=== PATIENT | female | born 1995 | race Two or more races ===

== ENCOUNTER 2018-05-08 16:31 | Emergency (ER) | payer MEDICAID, OTHER ==
[~2018-05-08] VITALS: Ht 160 cm; Wt 56.2 kg
[2018-05-08 16:31] VITALS: BP 120/85
[2018-05-08] MEDS ORDERED: SULF1TAB48 PO (16:43)
--- NOTE | 2018-05-08 17:04 | NUR ---
URINE SAMPLE COLLECTED SENT TO LAB
[2018-05-08 17:12] LABS: APPEARANCE,URINE CLEAR (CLEAR); BILIRUBIN,URINE NEGATIVE (NEGATIVE); BLOOD, URINE NEGATIVE Ery/uL (NEGATIVE); COLOR,URINE YELLOW (YELLOW); KETONES,URINE NEGATIVE (NEGATIVE); LEUKOCYTE ESTERASE ,URINE NEGATIVE (NEGATIVE); NITRITE, URINE NEGATIVE (NEGATIVE); PH,URINE 6.5 (5.0-8.0); PROTEIN,URINE NEGATIVE (NEGATIVE); UGLUCOSE NEGATIVE (NEGATIVE); UROBILINOGEN,URINE 0.2 EU/dL (0.2)
== END 2018-05-08 17:37 | disposition home or self-care (01) ==
LOC: ER 16:40
DX: R53.81 Other malaise (principal); R53.83 Other fatigue; K58.9 Irritable bowel syndrome, unspecified; Z90.49 Acquired absence of other specified parts of digestive tract
CPT/HCPCS: 81000-TC; 84703-TC; A4606; Z7610

== ENCOUNTER 2018-06-02 18:31 | Emergency (ER) | payer OTHER ==
[~2018-06-02] VITALS: Ht 162.6 cm; Wt 56.7 kg
[~2018-06-02 18:31] MED LIST: SULF1TAB48 PO
--- NOTE | 2018-06-02 18:35 | NUR ---
PRESENTS TO ER C/O MIGRAINE, DIZZINESS, AND VAGINAL INFECTION ~ 2 MONTHS. PATIENT IS A/OX 4, BREATHING EVEN AND UNLABORED. NO SOB, NAD, VITALS STABLE. SAFETY AND COMFORT MEASURES IN PLACE. AWAITING MD ORDERS.
[2018-06-02] MEDS ORDERED: IV NS 0.9% 1,000 ML BAG IV ONE (19:00)
[2018-06-02] MEDS ORDERED: diphenhydrAMINE HCL 50 MG/ML VIAL IV ONE (19:00)
[2018-06-02] MEDS ORDERED: METOCLOPRAMIDE HCL 10 MG/2 ML VIAL IV ONE (19:00)
[2018-06-02] MEDS ORDERED: IV NS 0.9% 250 ML BAG IV ONE (19:00)
--- NOTE | 2018-06-02 19:10 | NUR ---
NEW IV STARTED ON LAC, 20G. BLOOD DRAWN AND SENT TO LAB.
[2018-06-02 19:14] LABS: BASOPHILS % (AUTO) 0.3 % (0.0-2.0); EOSINOPHILS % (AUTO) 2.3 % (0.0-6.0); HEMATOCRIT 36 % (33-45); HEMOGLOBIN 12.5 g/dL (11.5-14.8); LYMPHOCYTES # (AUTO) 2.2 /CMM (0.8-4.8); LYMPHOCYTES % (AUTO) 41.8 % (20.0-44.0); MEAN CORPUSCULAR HEMOGLOBIN 33 PG (26.0-33.0); MEAN CORPUSCULAR HGB CONC 35 g/dl (31.0-36.0); MEAN CORPUSCULAR VOLUME 94 fL (82-100); MONOCYTES # (AUTO) 0.5 /CMM (0.1-1.30); MONOCYTES % (AUTO) 9.7 % (2.0-12.0); NEUTROPHILS # (AUTO) 2.5 /CMM (1.8-8.9); NEUTROPHILS % (AUTO) 45.9 % (43.0-81.0); PLATELET COUNT (AUTO) 194 /CMM (150-450); RDW COEFFICIENT OF VARIATION 12.5 (11.5-15.0); RED BLOOD CELL COUNT(AUTO) 3.79 MIL/uL (4.0-5.2); WHITE BLOOD COUNT (AUTO) 5.3 K/uL (4.3-11.0)
--- NOTE | 2018-06-02 19:15 | NUR ---
MATTRESS RENOVATOR BEDSIDE
--- NOTE | 2018-06-02 19:19 | NUR ---
REPORT GIVEN TO ROSALIND JOSEPH FOR JERRY.
[2018-06-02] MEDS ORDERED: diphenhydrAMINE HCL 50 MG/ML VIAL ONE (19:24)
[2018-06-02 19:25] LABS: CREATININE 0.9 mg/dL (0.6-1.3); POTASSIUM 4.3 mmol/L (3.5-5.1)
[2018-06-02] MEDS ORDERED: METOCLOPRAMIDE HCL 10 MG/2 ML VIAL ONE (19:25)
[2018-06-02 19:31] LABS: ALBUMIN 3.5 g/dL (3.4-5.0); BILIRUBIN,DIRECT 0.1 mg/dL (0.0-0.2); BILIRUBIN,TOTAL 0.1 mg/dL (0.2-1.0); TOTAL PROTEIN, SERUM 7.2 g/dL (6.4-8.2)
--- NOTE | 2018-06-02 19:37 | NUR ---
PT TO RESTROOM TO GIVE URINE SAMPLE
[2018-06-02 19:52] LABS: APPEARANCE,URINE Clear (CLEAR); BILIRUBIN,URINE Negative (NEGATIVE); BLOOD, URINE Negative Ery/uL (NEGATIVE); COLOR,URINE Light yellow (YELLOW); KETONES,URINE Negative (NEGATIVE); LEUKOCYTE ESTERASE ,URINE Negative (NEGATIVE); NITRITE, URINE Negative (NEGATIVE); PROTEIN,URINE Negative (NEGATIVE); UGLUCOSE Negative (NEGATIVE); UROBILINOGEN,URINE 0.2 EU/dL (0.2)
[2018-06-02] MEDS ORDERED: KETOROLAC TROMETHAMINE INJ 30 MG/ML VIAL ONE (20:45)
[2018-06-02] MEDS ORDERED: KETOROLAC TROMETHAMINE INJ 30 MG/ML VIAL IV ONE (21:00)
--- NOTE | 2018-06-02 21:23 | NUR ---
Patient discharged to home in stable condition. Written and verbal after care instructions given. Patient verbalizes understanding of instruction.IV removed. Catheter intact and site benign. Pressure and 4x4 applied to site. No bleeding noted. VSS UPON DISCHARGE.
[2018-06-02 21:24] VITALS: BP 128/84
== END 2018-06-02 21:25 | disposition home or self-care (01) ==
LOC: ER 18:32
DX: G43.909 Migraine, unspecified, not intractable, without status migrainosus (principal); R10.2 Pelvic and perineal pain; Z90.49 Acquired absence of other specified parts of digestive tract
CPT/HCPCS: 36415; 76856; 80048; 80076; 81001; 84703; 85025; 96374; 96375; 99285; A4606; J1200; J1885; J2765; J7030; Z7610; 81000-TC

== ENCOUNTER 2018-08-10 09:25 | Emergency (ER) | payer MEDICAID, OTHER ==
[~2018-08-10] VITALS: Ht 157.5 cm; Wt 54.4 kg
[2018-08-10 09:25] VITALS: BP 126/83
== END 2018-08-10 10:33 | disposition home or self-care (01) ==
LOC: ER 09:26
DX: G56.01 Carpal tunnel syndrome, right upper limb (principal); K58.9 Irritable bowel syndrome, unspecified; Z90.49 Acquired absence of other specified parts of digestive tract
CPT/HCPCS: 29125; 99283; A4606; Z7610

== ENCOUNTER 2018-12-27 19:30 | Emergency (ER) | payer MEDICAID ==
[~2018-12-27] VITALS: Ht 160 cm; Wt 55.8 kg
--- NOTE | 2018-12-27 20:27 | NUR ---
BIB SELF, C/O MIGRAINE CHILDRESS FOR 1 WK PER PT. AAOX4, VSS. DENIES DIZZINESS, N/V @ THIS TIME. PT SEEN & EVAL'D BY DR. KRISHNAMURTHY. WILL CONT TO MONITOR.
[2018-12-27] MEDS ORDERED: DIPHENHYDRAMINE HCL 12.5 MG/5 ML UDC PO ONE (21:00)
[2018-12-27] MEDS ORDERED: PROCHLORPERAZINE EDISYLATE 10 MG/2 ML VIAL IV ONE (21:00)
[2018-12-27] MEDS ORDERED: IV NS 0.9% 500 ML BAG IV ONE (21:00)
[2018-12-27] MEDS ORDERED: DEXAMETHASONE SOD PHOSPHATE 10 MG/ML VIAL IV ONE (21:00)
[2018-12-27 21:03] LABS: BASOPHILS % (AUTO) 0.8 % (0.0-2.0); EOSINOPHILS % (AUTO) 2.8 % (0.0-6.0); HEMATOCRIT 35 % (33-45); LYMPHOCYTES # (AUTO) 2.6 /CMM (0.8-4.8); LYMPHOCYTES % (AUTO) 52.4 % (20.0-44.0); MEAN CORPUSCULAR HGB CONC 34 g/dl (31.0-36.0); MEAN CORPUSCULAR VOLUME 96 fL (82-100); MONOCYTES # (AUTO) 0.5 /CMM (0.1-1.30); MONOCYTES % (AUTO) 10.9 % (2.0-12.0); NEUTROPHILS # (AUTO) 1.6 /CMM (1.8-8.9); NEUTROPHILS % (AUTO) 33.1 % (43.0-81.0); PLATELET COUNT (AUTO) 194 /CMM (150-450)
[2018-12-27 21:10] LABS: CALCIUM, SERUM 8.9 mg/dL (8.5-10.1); CREATININE 1.1 mg/dL (0.6-1.3); POTASSIUM 4.7 mmol/L (3.5-5.1)
[2018-12-27] MEDS ORDERED: DEXAMETHASONE SOD PHOSPHATE 10 MG/ML VIAL ONE (21:10)
[2018-12-27] MEDS ORDERED: PROCHLORPERAZINE EDISYLATE 10 MG/2 ML VIAL ONE (21:10)
--- NOTE | 2018-12-27 21:25 | NUR ---
MEDICATED FOR CHILDRESS PER DR. KRISHNAMURTHY'S ORDER, PT SAMMIE WELL. WILL CONT TO MONITOR.
[2018-12-27 22:13] VITALS: BP 122/73
--- NOTE | 2018-12-27 22:13 | NUR ---
Patient discharged to home in stable condition. Written and verbal after care instructions given. Patient verbalizes understanding of instruction. IV removed. Catheter intact and site benign. Pressure and 4x4 applied to site. No bleeding noted.
== END 2018-12-27 22:14 | disposition home or self-care (01) ==
LOC: ER 19:34
DX: G43.909 Migraine, unspecified, not intractable, without status migrainosus (principal); K58.9 Irritable bowel syndrome, unspecified; Z90.49 Acquired absence of other specified parts of digestive tract; Z87.19 Personal history of other diseases of the digestive system
CPT/HCPCS: 36415; 80048-TC; 85025-TC; J0780; J1100; J7030; Q0163

== ENCOUNTER 2019-06-18 17:11 | Emergency (ER) | payer MEDICAID ==
[~2019-06-18] VITALS: Ht 157.5 cm; Wt 56.7 kg
[2019-06-18 17:15] VITALS: BP 136/69
[2019-06-18] MEDS ORDERED: KETOROLAC TROMETHAMINE INJ 60 MG/2 ML VIAL IM ONE ×2 (19:00→19:43)
[2019-06-18 19:36] LABS: CALCIUM, SERUM 9.3 mg/dL (8.5-10.1); POTASSIUM 3.6 mmol/L (3.5-5.1)
[2019-06-18 19:41] LABS: ALBUMIN 4.3 g/dL (3.4-5.0); BILIRUBIN,DIRECT 0.1 mg/dL (0.0-0.2); BILIRUBIN,TOTAL 0.3 mg/dL (0.2-1.0); TOTAL PROTEIN, SERUM 8.2 g/dL (6.4-8.2)
[2019-06-18 20:26] LABS: BASOPHILS % (AUTO) 0.6 % (0.0-2.0); EOSINOPHILS % (AUTO) 1.6 % (0.0-6.0); HEMATOCRIT 40 % (33-45); HEMOGLOBIN 13.5 g/dL (11.5-14.8); LYMPHOCYTES # (AUTO) 2.5 /CMM (0.8-4.8); LYMPHOCYTES % (AUTO) 44.8 % (20.0-44.0); MEAN CORPUSCULAR HGB CONC 34 g/dl (31.0-36.0); MEAN CORPUSCULAR VOLUME 94 fL (82-100); MONOCYTES # (AUTO) 0.4 /CMM (0.1-1.30); MONOCYTES % (AUTO) 7.1 % (2.0-12.0); NEUTROPHILS # (AUTO) 2.6 /CMM (1.8-8.9); NEUTROPHILS % (AUTO) 45.9 % (43.0-81.0); PLATELET COUNT (AUTO) 223 /CMM (150-450); RED BLOOD CELL COUNT(AUTO) 4.23 MIL/uL (4.0-5.2); WHITE BLOOD COUNT (AUTO) 5.6 K/uL (4.3-11.0)
== END 2019-06-18 20:23 | disposition home or self-care (01) ==
LOC: ER 17:12
DX: G89.29 Other chronic pain (principal); M79.662 Pain in left lower leg; M79.661 Pain in right lower leg; K58.9 Irritable bowel syndrome, unspecified; G43.909 Migraine, unspecified, not intractable, without status migrainosus; Z90.49 Acquired absence of other specified parts of digestive tract
CPT/HCPCS: 36415; 80048-TC; 80076-TC; 85025-TC; J1885

== ENCOUNTER 2019-06-23 23:04 | Emergency (ER) | payer MEDICAID ==
[~2019-06-23] VITALS: Ht 160 cm; Wt 56.7 kg
--- NOTE | 2019-06-23 23:45 | NUR ---
PT BIBSELF WITH C/O OF "FEELING HOT AND SHORTNESS OF BREATH" EARLIER TODAY. ADMITS TO HAVING X1 EPISODE OF VOMITING. A/OX4. BREATHING EVEN AND UNLABORED. PLACED ON THE DIRECTOR OF CORPORATE REAL ESTATE AND PULSE OX
[2019-06-24] MEDS ORDERED: LORAZEPAM 1 MG TABLET ONE (00:24)
[2019-06-24] MEDS ORDERED: LORAZEPAM 1 MG TABLET PO ONE (00:30)
[2019-06-24 00:35] VITALS: BP 129/93
--- NOTE | 2019-06-24 01:15 | NUR ---
Pt states she does not feel well, still feeling "hot flash."
--- NOTE | 2019-06-24 01:20 | NUR ---
Constitutional [employer] Professor at bedside for lab draw. labs sent.
[2019-06-24 01:45] LABS: CALCIUM, SERUM 8.6 mg/dL (8.5-10.1); CREATININE 0.9 mg/dL (0.6-1.3); POTASSIUM 4.1 mmol/L (3.5-5.1)
--- NOTE | 2019-06-24 01:58 | NUR ---
Patient discharged to home in stable condition. Written and verbal after care instructions given. Patient verbalizes understanding of instruction. Pt ambulatory with steady gait.
== END 2019-06-24 02:00 | disposition home or self-care (01) ==
LOC: ER 23:09
DX: R21 Rash and other nonspecific skin eruption (principal); F41.9 Anxiety disorder, unspecified; G43.909 Migraine, unspecified, not intractable, without status migrainosus; K58.9 Irritable bowel syndrome, unspecified; Z90.49 Acquired absence of other specified parts of digestive tract
CPT/HCPCS: 36415; 80048-TC

== ENCOUNTER 2019-06-27 00:37 | Emergency (ER) | payer BC, MEDICAID ==
[~2019-06-27] VITALS: Ht 157.5 cm; Wt 58.1 kg
--- NOTE | 2019-06-27 01:35 | NUR ---
Note lisa in EDM - 06/27/19 at 0326 by IGGY PT LOLLYSELChalino C/C DIARRHEA SINCE 3PM, +N/-V, -BLOOD, "I THINK IM DEHYDRATED", PT DENIES PAIN. PT AMBULATORY. PT IN BED 7 ON MONITOR. WILL CONTINUE TO MONITOR.
--- NOTE | 2019-06-27 01:35 | NUR ---
PT BIBSELF C/C DIARRHEA SINCE 3PM, +N/-V, -BLOOD, "I THINK IM DEHYDRATED", PT DENIES PAIN AT THIS TIME. PT WAS SEEN AT [facility] YESTERDAY BUT SYMPTOMS ARE WORSENING. PT IS AMBULATORY. PT ON MONITOR IN BED 7. WILL CONTINUE TO MONITOR.
--- NOTE | 2019-06-27 01:35 | NUR ---
URINE COLLECTED AND SENT TO LAB
[2019-06-27] MEDS ORDERED: ONDANSETRON HCL/PF - ER 4 MG/2 ML VIAL IV ONE (02:30)
[2019-06-27] MEDS ORDERED: IV NS 0.9% 1,000 ML BAG IV ONE (02:30)
[2019-06-27 02:37] LABS: APPEARANCE,URINE Clear (CLEAR); BILIRUBIN,URINE Negative (NEGATIVE); BLOOD, URINE Negative Ery/uL (NEGATIVE); KETONES,URINE Negative (NEGATIVE); LEUKOCYTE ESTERASE ,URINE Negative (NEGATIVE); NITRITE, URINE Negative (NEGATIVE); PROTEIN,URINE Negative (NEGATIVE); UGLUCOSE Negative (NEGATIVE); UROBILINOGEN,URINE 0.2 EU/dL (0.2)
[2019-06-27 02:38] LABS: COLOR,URINE OTHER (YELLOW)
--- NOTE | 2019-06-27 02:45 | NUR ---
BLOOD DRAWN AND GIVEN TO LAB
[2019-06-27] MEDS ORDERED: ONDANSETRON HCL/PF 4 MG/2 ML VIAL ONE (02:47)
[2019-06-27 02:56] LABS: BASOPHILS % (AUTO) 0.6 % (0.0-2.0); EOSINOPHILS % (AUTO) 1.8 % (0.0-6.0); HEMATOCRIT 38 % (33-45); HEMOGLOBIN 13.1 g/dL (11.5-14.8); MEAN CORPUSCULAR HGB CONC 35 g/dl (31.0-36.0); MEAN CORPUSCULAR VOLUME 92 fL (82-100); MONOCYTES # (AUTO) 0.5 /CMM (0.1-1.30); MONOCYTES % (AUTO) 8.9 % (2.0-12.0); NEUTROPHILS # (AUTO) 2.3 /CMM (1.8-8.9); NEUTROPHILS % (AUTO) 38.7 % (43.0-81.0); PLATELET COUNT (AUTO) 252 /CMM (150-450); RED BLOOD CELL COUNT(AUTO) 4.06 MIL/uL (4.0-5.2); WHITE BLOOD COUNT (AUTO) 5.9 K/uL (4.3-11.0)
[2019-06-27 02:57] LABS: CREATININE 0.9 mg/dL (0.6-1.3); POTASSIUM 3.9 mmol/L (3.5-5.1)
[2019-06-27 03:03] LABS: ALBUMIN 3.8 g/dL (3.4-5.0); BILIRUBIN,DIRECT 0.1 mg/dL (0.0-0.2); BILIRUBIN,TOTAL 0.3 mg/dL (0.2-1.0); TOTAL PROTEIN, SERUM 7.6 g/dL (6.4-8.2)
--- NOTE | 2019-06-27 03:28 | NUR ---
PT AMBULATED TO RESTROOM WITH NO ASSISTANCE.
[2019-06-27 03:36] VITALS: BP 119/41
--- NOTE | 2019-06-27 04:02 | NUR ---
IV removed. Catheter intact and site benign. Pressure and 4x4 applied to site. No bleeding noted.Patient discharged to home in stable condition. Written and verbal after care instructions given. Patient verbalizes understanding of instruction. PT AMBULATORY WITH STEADY GAIT.
== END 2019-06-27 04:04 | disposition home or self-care (01) ==
LOC: ER 00:37
DX: R19.7 Diarrhea, unspecified (principal); K58.9 Irritable bowel syndrome, unspecified; G43.909 Migraine, unspecified, not intractable, without status migrainosus; Z90.49 Acquired absence of other specified parts of digestive tract
CPT/HCPCS: 36415; 80048; 80076; 81001; 83690; 84703; 85025; 96361; 96374; 99283; J2405; J7030; 81000-TC

== ENCOUNTER 2019-10-01 19:17 | Emergency (ER) | payer MEDICAID ==
[~2019-10-01] VITALS: Ht 160 cm; Wt 56.7 kg
--- NOTE | 2019-10-01 19:45 | NUR ---
BIB SELF C/O "MIGRAINE HEADACHE X1 1/2 MONTHS". PT WAS SEEN BY NEUROLOGIST 2 DAYS AGO, TO ER BED 2, VSS AWAITING MED EVAL
[2019-10-01] MEDS ORDERED: DEXAMETHASONE SOD PHOSPHATE 4 MG/ML VIAL IV ONE (20:00)
[2019-10-01] MEDS ORDERED: diphenhydrAMINE HCL 50 MG/ML VIAL IV ONE (20:00)
[2019-10-01] MEDS ORDERED: IV NS 0.9% 1,000 ML BAG IV ONE (20:00)
[2019-10-01] MEDS ORDERED: PROCHLORPERAZINE EDISYLATE 10 MG/2 ML VIAL IVP ONE (20:00)
[2019-10-01] MEDS ORDERED: DEXAMETHASONE SOD PHOSPHATE 10 MG/ML VIAL ONE (20:11)
[2019-10-01] MEDS ORDERED: diphenhydrAMINE HCL ELIX 25 MG/10 ML UDC ONE (20:12)
[2019-10-01] MEDS ORDERED: PROCHLORPERAZINE EDISYLATE 10 MG/2 ML VIAL ONE (20:12)
[2019-10-01] MEDS ORDERED: diphenhydrAMINE HCL 50 MG/ML VIAL ONE (20:21)
[2019-10-01 20:24] LABS: BASOPHILS # (AUTO) 0.1 /CMM (0.0-0.2); BASOPHILS % (AUTO) 0.9 % (0.0-2.0); HEMATOCRIT 40 % (33-45); HEMOGLOBIN 13.5 g/dL (11.5-14.8); LYMPHOCYTES # (AUTO) 2.2 /CMM (0.8-4.8); LYMPHOCYTES % (AUTO) 33.5 % (20.0-44.0); MEAN CORPUSCULAR HGB CONC 33 g/dl (31.0-36.0); MEAN CORPUSCULAR VOLUME 95 fL (82-100); MONOCYTES # (AUTO) 0.3 /CMM (0.1-1.30); NEUTROPHILS # (AUTO) 3.8 /CMM (1.8-8.9); NEUTROPHILS % (AUTO) 58.6 % (43.0-81.0); PLATELET COUNT (AUTO) 229 /CMM (150-450); RED BLOOD CELL COUNT(AUTO) 4.23 MIL/uL (4.0-5.2); WHITE BLOOD COUNT (AUTO) 6.5 K/uL (4.3-11.0)
[2019-10-01 20:33] LABS: CALCIUM, SERUM 9.3 mg/dL (8.5-10.1); POTASSIUM 3.8 mmol/L (3.5-5.1)
[2019-10-01 20:39] LABS: ALBUMIN 4.2 g/dL (3.4-5.0); BILIRUBIN,DIRECT 0.1 mg/dL (0.0-0.2); BILIRUBIN,TOTAL 0.3 mg/dL (0.2-1.0); TOTAL PROTEIN, SERUM 8.2 g/dL (6.4-8.2)
--- NOTE | 2019-10-01 21:45 | NUR ---
Patient discharged to home in stable condition. Written and verbal after care instructions given. Patient verbalizes understanding of instruction.
[2019-10-01 21:46] VITALS: BP 130/90
== END 2019-10-01 21:47 | disposition home or self-care (01) ==
LOC: ER 19:25
DX: G43.909 Migraine, unspecified, not intractable, without status migrainosus (principal); Z90.49 Acquired absence of other specified parts of digestive tract
CPT/HCPCS: 36415; 80048; 80076; 84703; 85025; 96374; 96375; 99283; J0780; J1100; J1200; J7030; Q0163